=== PATIENT | female | born 1975 | race American Indian/Alaskan Native ===

== ENCOUNTER 2016-10-08 07:31 | Inpatient (IN) | payer MEDICAID, OTHER ==
[2016-10-08 08:15] LABS: Basophils % (Auto) 0.3 % (0.0-1.8); Hematocrit 43.1 % (30.3-42.9); Hemoglobin 14.7 gm/dl (10.1-14.3); Mean Corpuscular HGB Conc 34 % (30-34); Mean Corpuscular Hemoglobin 35 pg (28-32); Mean Corpuscular Volume 102 fl (79-97); Platelet Count 143 K/mm3 (140-440); Red Blood Count 4.22 M/mm3 (3.65-5.03); Red Cell Distribution Width 12.5 % (13.2-15.2); White Blood Count 16.3 K/mm3 (4.5-11.0)
[2016-10-08 08:31] LABS: Alanine Aminotransferase 19 units/L (7-56); Albumin 4.2 g/dL (3.9-5); Albumin/Globulin Ratio 1.3 %; Alkaline Phosphatase 79 units/L (35-129); Anion Gap 21 mmol/L; Bilirubin,Total 1.5 mg/dL (0.1-1.2); Blood Urea Nitrogen 6 mg/dL (7-17); Calcium 8.9 mg/dL (8.4-10.2); Carbon Dioxide 23 mmol/L (22-30); Chloride 96.6 mmol/L (98-107); Glucose 109 mg/dL (65-100); Potassium 4.1 mmol/L (3.6-5.0); Sodium 136 mmol/L (137-145); Total Protein 7.5 g/dL (6.3-8.2)
[2016-10-08 08:40] LABS: Lipase 1222 units/L (13-60)
[2016-10-08 10:03] LABS: Bilirubin,Urine Negative (Negative); Blood,Urine Moderate (Negative); Ketones,Urine Negative (Negative)
[2016-10-08 10:04] LABS: Leukocyte Esterase,Urine Negative (Negative); Nitrite,Urine Negative (Negative); Urobilinogen,Urine < 2.0 mg/dL (<2.0)
[2016-10-08 10:35] LABS: Bacteria,Urine 1+ /HPF (Negative); Mucus,Urine 1+ /HPF
[2016-10-08] MEDS ORDERED: MORPHINE IV ONE (11:37)
[2016-10-08] MEDS ORDERED: ZOFRAN IV ONE (11:46)
--- NOTE | 2016-10-08 11:52 | Emergency Department Report ---
ED Abdominal Pain HPI - General Chief Complaint: Abdominal Pain Stated Complaint: ABD PAIN/VOMITING Time Seen by Provider: 10/08/16 11:31 Source: patient Mode of arrival: Ambulatory Limitations: No Limitations - History of Present Illness Initial Comments: 41-year-old female comes in for complaint of upper abdominal pain 1 week patient reports that she seen her primary medical doctor for the same issues on Sunday and was told she has a virus in her stomach is irritated. Patient reports that her primary medical doctor placed her on Prilosec which she feels did not help at all. Patient complains of nausea vomiting diarrhea. She denies any vaginal bleeding discharge no dysuria no urinary frequency no urgency. Patient describes the pain as burning. She does disclose that she is in drinker of alcohol daily. She reports she's had a past medical history of pancreatitis. His accompanying by in the exam room. - Related Data Previous Rx's Medication Instructions Recorded Last Taken Type Hydrocodone Bit/Acetaminophen 1 each PO Q6H PRN #12 tablet 08/20/13 Unknown Rx [Vicodin 5/500] Ibuprofen [Motrin] 600 mg PO Q6H PRN #20 tablet 08/20/13 Unknown Rx Methocarbamol [Robaxin] 750 mg PO BID #14 tab 08/20/13 Unknown Rx Docusate Sodium [Colace] 100 mg PO BID PRN #60 capsule 05/25/14 Unknown Rx Ibuprofen [Motrin 800 MG tab] 800 mg PO Q8H PRN #30 tablet 05/25/14 Unknown Rx oxyCODONE /ACETAMINOPHEN [Percocet 1 tab PO Q6HR PRN #30 tablet 05/25/14 Unknown Rx 5/325] Enoxaparin [Lovenox] 40 mg SQ QDAY #30 syringe 05/28/14 Unknown Rx Allergies Allergy/AdvReac Type Severity Reaction Status Date / Time Sulfa (Sulfonamide Allergy Hives Verified 08/20/13 16:18 Antibiotics) ED Review of Systems ROS: Stated complaint: ABD PAIN/VOMITING Other details as noted in HPI Constitutional: denies: chills, fever Gastrointestinal: abdominal pain (upper quadrant), nausea, vomiting, diarrhea Genitourinary: denies: urgency, dysuria, frequency, hematuria, discharge ED Past Medical Hx - Past Medical History Hx Hypertension: No Hx Congestive Heart Failure: No Hx Diabetes: No Hx Deep Vein Thrombosis: No Hx Liver Disease: No Hx Renal Disease: No Hx Sickle Cell Disease: No Hx Seizures: No Hx Asthma: Yes Hx COPD: No Hx HIV: No Additional medical history: pancreatitis - Surgical History Past Surgical History?: Yes Additional Surgical History: - Social History Smoking Status: Current Every Day Smoker Substance Use Type: Alcohol - Medications Home Medications: Home Medications Medication Instructions Recorded Confirmed Last Taken Type Hydrocodone Bit/Acetaminophen 1 each PO Q6H PRN #12 tablet 08/20/13 05/25/14 Unknown Rx [Vicodin 5/500] Ibuprofen [Motrin] 600 mg PO Q6H PRN #20 tablet 08/20/13 05/25/14 Unknown Rx Methocarbamol [Robaxin] 750 mg PO BID #14 tab 08/20/13 05/25/14 Unknown Rx Docusate Sodium [Colace] 100 mg PO BID PRN #60 capsule 05/25/14 Unknown Rx Ibuprofen [Motrin 800 MG tab] 800 mg PO Q8H PRN #30 tablet 05/25/14 Unknown Rx oxyCODONE /ACETAMINOPHEN [Percocet 1 tab PO Q6HR PRN #30 tablet 05/25/14 Unknown Rx 5/325] Enoxaparin [Lovenox] 40 mg SQ QDAY #30 syringe 05/28/14 Unknown Rx ED Physical Exam - General Limitations: No Limitations General appearance: alert, in no apparent distress - Head Head exam: Present: atraumatic, normocephalic - Eye Eye exam: Present: normal appearance - ENT ENT exam: Present: normal exam, mucous membranes moist - Neck Neck exam: Present: normal inspection - Respiratory Respiratory exam: Present: normal lung sounds bilaterally - Cardiovascular Cardiovascular Exam: Present: regular rate, normal rhythm - GI/Abdominal GI/Abdominal exam: Present: soft, distended ( epigastric), tenderness (right upper and left upper quadrants), normal bowel sounds. Absent: guarding, rebound - Back Exam Back exam: Present: normal inspection. Absent: CVA tenderness (R), CVA tenderness (L) - Neurological Exam Neurological exam: Present: alert, oriented X3 - Psychiatric Psychiatric exam: Present: normal affect - Skin Skin exam: Present: warm, dry, intact, normal color. Absent: rash ED Course Vital Signs 10/08/16 07:45 Temperature 98.8 F Pulse Rate 117 H Respiratory 18 Rate Blood Pressure 147/100 O2 Sat by Pulse 97 Oximetry ED Medical Decision Making - Lab Data Result diagrams: 10/08/16 08:00 10/08/16 08:00 - Radiology Data Radiology results: image reviewed FINDINGS: Abdomen: The liver is enlarged and diffusely hypodense. The right lobe measures 20.5 cm in length. No liver mass. The gallbladder and bile ducts are normal.The pancreatic body and tail are enlarged and there is moderate peripancreatic fluid. Peripancreatic fat stranding and stranding of the mesenteric fat. Moderate ascites with perihepatic fluid and mild fluid in the paracolic gutters. Normal stomach, duodenum and spleen. The kidneys are normal except for a 2.5 cm right renal cyst. The renal collecting systems and ureters are nondilated. Normal aorta and inferior vena cava. The small bowel is normal.Normal ascending, transverse and descending colon. Normal appendix. No pneumoperitoneum. Pelvis: Normal urinary bladder.Normal uterus and ovaries. Status post bilateral tubal ligation. Moderate free pelvic fluid. Normal rectum and sigmoid colon. Bone windows demonstrate no bone lesion. IMPRESSION:1. Acute pancreatitis with no apparent complication. 2. Hepatic steatosis and hepatomegaly. 3. No evidence of cholelithiasis. However, ultrasound is more sensitive for detecting small calculi which may not be visible on CT. 4. Normal pelvis. - Medical Decision Making Since evaluated by this provider in fast track. Discussed with Dr. Love my findings on exam and labs. Discussed lipase is 1222 WBCs are 16.3 total bilirubin is 1.5. He agrees patient needs to be scan with a CAT scan of abdomen with contrast IV to be placed for normal saline bolus 4 mg of morphine 4 mg of Zofran. We will discuss admissions once we had the results of CAT scan. Patient has been placed on nothing by mouth. Critical care attestation.: If time is entered above; I have spent that time in minutes in the direct care of this critically ill patient, excluding procedure time. ED Disposition Condition: Stable Instructions: Abdominal Pain (ED)
--- NOTE | 2016-10-08 13:15 | Cat Scan Report ---
CT ABDOMEN AND PELVIS WITH CONTRAST: 10/08/16 07:31:00 CLINICAL: Abdominal pain with elevated lipase and white blood cell count.. COMPARISON: None. TECHNIQUE: Volumetric acquisition and 1.25 millimeter scan reconstructions after the uneventful intravenous injection of 100 cc Omnipaque 300. Consent was obtained prior to the administration of contrast. Oral contrast was also given. FINDINGS: Abdomen: The liver is enlarged and diffusely hypodense. The right lobe measures 20.5 cm in length. No liver mass. The gallbladder and bile ducts are normal.The pancreatic body and tail are enlarged and there is moderate peripancreatic fluid. Peripancreatic fat stranding and stranding of the mesenteric fat. Moderate ascites with perihepatic fluid and mild fluid in the paracolic gutters. Normal stomach, duodenum and spleen. The kidneys are normal except for a 2.5 cm right renal cyst. The renal collecting systems and ureters are nondilated. Normal aorta and inferior vena cava. The small bowel is normal.Normal ascending, transverse and descending colon. Normal appendix. No pneumoperitoneum. Pelvis: Normal urinary bladder.Normal uterus and ovaries. Status post bilateral tubal ligation. Moderate free pelvic fluid. Normal rectum and sigmoid colon. Bone windows demonstrate no bone lesion. IMPRESSION:1. Acute pancreatitis with no apparent complication. 2. Hepatic steatosis and hepatomegaly. 3. No evidence of cholelithiasis. However, ultrasound is more sensitive for detecting small calculi which may not be visible on CT. 4. Normal pelvis.
[2016-10-08] MEDS ORDERED: DILAUDID IV ONE (13:49)
--- NOTE | 2016-10-08 16:30 | Event Note ---
Date: 10/08/16 See H/p in reports Acute pancreatitis Chronic pain Etoh dependence
[2016-10-08] MEDS ORDERED: TYLENOL PO PRN (16:41)
[2016-10-08] MEDS ORDERED: MILK OF MAGNESIA PO PRN (16:41)
[2016-10-08] MEDS ORDERED: DULCOLAX PR PRN (16:41)
[2016-10-08] MEDS ORDERED: ZOFRAN IV PRN ×2 (16:41→16:52)
[2016-10-08] MEDS: LOVENOX SUB-Q SCH (17:09)
[2016-10-08] MEDS ORDERED: PEPCID IV SCH (22:00)
[2016-10-08] MEDS: DILAUDID IV PRN (22:13)
[2016-10-08] MEDS: D5NS 1,000 ML IV SCH (22:13)
[2016-10-08] MEDS ORDERED: HALDOL IM PRN (23:09)
[2016-10-08] MEDS ORDERED: ATIVAN IV PRN ×2 (23:09)
[2016-10-08] MEDS ORDERED: HABITROL TD ONE (23:15)
--- NOTE | 2016-10-09 00:02 | Admit Criteria Form ---
Admission Criteria Documentation: ABDOMINAL PAIN Clinical Indications for Admission to Inpatient Care (Place 'X' for any and all applicable criteria): Admission is indicated for ANY ONE of the following(1)(2)(3)(4)(5): [ ]I. Inpatient admission required rather than observation care (Also use Abdominal Pain: Observation Care, as appropriate) because of ANY ONE of the following: [ ]a) Severe pain requiring acute inpatient management [ ]b) Identification of etiology/finding that requires inpatient care (eg, aortic dissection, free air) [ ]c) Absent bowel sounds with complete ileus(6) [ ]d) Suspected toxic megacolon [ ]e) Severe electrolyte abnormalities requiring inpatient care [ ]f) High fever or infection requiring inpatient admission as indicated by ANY ONE of following(7)(8): [ ] i) Appropriate outpatient or observational care antimicrobial treatment unavailable, not effective, or not feasible [ ] ii) Documented bacteremia [ ] iii) Temperature > 104.9 degrees F (oral) [ ] iv) T >103.1 F (oral) or < 96.8 F(rectal) that does not respond to all emergency treatment measures [ ]g) Signs of intestinal obstruction [B] [ ]h) Hemodynamic instability [ ]i) IV fluid to replace significant ongoing losses (greater than 3 L/m2 per day) (12)(13) [ ]j) Percutaneous or open drainage (eg, abscess, biliary tract ) procedures [ ]k) Parenteral nutrition regimen that must be implemented on inpatient basis [ ]l) Other condition,treatment or monitoring requiring inpatient admission. [ ]II. Peritoneal signs present [ ]III. Surgery needed that cannot be performed on an ambulatory basis. [X ]IV. Evaluation requires patient to not eat or drink for extended period ( eg, more than 24 hours). [ ]V. Contraindications and/or Inappropriate clinical situations for Observational Care in patients with abdominal pain, when ANY ONE of the following is required: [ ]a) Thorough evaluation is required to prevent catastrophic events due to delays in diagnosing (e.g.Mesenteric ischemia) 1,3 [ ]b) Patient with severe pathology or with chronic symptoms unlikely to improve in the ED stay (3) [ ]. General contraindications and/or Inappropriate clinical situations for Observational Care in patients with abdominal pain, when ANY ONE of the following is required: [ ]a) Prediction of prolongation of LOS based on ANY ONE of the following may be considered as a contraindication for observational care 2, 3, 4, 5, 6, 7, 8, 9, 10, 11 [ ]i) Age > 65 yrs. [ ]ii) Patient arriving by ambulance [ ]iii) Patient with high acuity [ ]iv) Patient requiring vital sign monitoring [ ]v) Patient on IV medication [ ]b) Systolic blood pressures 180mmHg 3,12 [ ]c) Patient with altered mental status including delirium and other alteration of consciousness, (3) [ ]d) Patient whose discharge disposition will be to a senior living home or rehabilitation home should not be managed in Emergency Department Observation Unit. CMS rule requires 3 days hospital stay before such placement.3,13 [ ]e) Patient with failure to thrive due to broad array of etiologies 3,16,17 [ ]f) Inability to ambulate 3,14 Extended stay beyond goal length of stay may be needed for(2)(3): [ ]a) Persistent abdominal pain with suspected intra-abdominal process [ ]b) Diagnosed condition requiring continued stay (e.g., pancreatitis, complicated diverticulitis) [ ]c) Surgery (e.g., colectomy) The original [facility] content created by [employer] has been revised. The portions of the content which have been revised are identified through the use of italic text or in bold, and [facility] has neither reviewed nor approved the modified material.All other unmodified content is copyright [facility]. Please see references footnoted in the original [facility] edition 2016 Admission Criteria Met: Yes
--- NOTE | 2016-10-09 00:07 | History and Physical Report ---
CHIEF COMPLAINT: Severe epigastric pain of one week duration. HISTORY OF PRESENT ILLNESS: A 41-year-old -[place] female comes in for severe epigastric pain of one week duration. The patient apparently was given Prilosec with no relief. Complains of nausea and vomiting. Vomiting 3-4 times. Pain is about 10 on a scale of 1-10. It is a severe sharp pain. No difficulty urinating. No pain on urination. She takes alcohol on a regular basis. PAST MEDICAL HISTORY: Significant for chronic pain, asthma, and a history of pancreatitis in the past. CURRENT MEDICATIONS: Vicodin 5/500 and Robaxin 750 mg twice a day. Oxycodone q. 6 p.r.n. PAST SURGICAL HISTORY: Significant for . SOCIAL HISTORY: Alcohol on a regular basis. However, the patient could not quantify it properly. Current everyday smoker, about a pack a day. FAMILY HISTORY: Significant for hypertension. REVIEW OF SYSTEMS: Significant for severe epigastric pain associated with vomiting. Pain is 10/10. Otherwise, review of systems is essentially negative. Vomiting occasionally. PHYSICAL EXAMINATION: GENERAL: Middle-aged female, cooperative during examination. VITAL SIGNS: Temperature 98.8, pulse is 117, respirations are 18, blood pressure 147/100, sats are 97%. HEENT: Unremarkable. Pupils equal and reactive. NECK: Supple, no lymphadenopathy, no thyromegaly. LUNGS: Clear to auscultation and percussion. Good air entry. CARDIOVASCULAR: S1, S2 heard. No gallop, no murmur, no rub. Apical impulse in left fifth intercostal space and midclavicular line. ABDOMEN: Soft. Epigastric tenderness present. No guarding, no rigidity. Hernial orifices are normal. EXTREMITIES: Good pedal pulses. CENTRAL NERVOUS SYSTEM: Alert and oriented x 4, nonfocal exam. SKIN: Normal. LABORATORY DATA: Significant for white count of 16,300, H and H is 14.7 and 43.1, platelet count is 143,000. Sodium is 136, potassium is 4.1, chloride is 96.6, BUN and creatinine is 6 and 0.6, glucose is 109. A1c is 5.1. Lipase is 1222. Amylase was not done. Urine was negative. CT of the abdomen shows acute pancreatitis with no apparent complication. Peripancreatic fat stranding, stranding of mesenteric fats, and peripancreatic fluid present. ASSESSMENT AND PLAN: 1. Acute pancreatitis secondary to alcohol. The patient will be kept n.p.o., IV fluids and Dilaudid 2 mg IV push q. 3., and Zofran 4-8 mg q. 3 p.r.n. 2. ETOH dependence. The patient will be put on CIWA protocol to prevent DVTs. 3. Chronic pain. The patient is already on pain medication, does not take any pain medication. 4. Deep venous thrombosis prophylaxis, Lovenox 40 mg subcutaneous daily. [facility]# [id number] MARI AC/ASHIA
[2016-10-09] MEDS: PROTONIX IV SCH ×2 (00:08→09:16)
[2016-10-09] MEDS: DILAUDID IV PRN ×6 (02:43→21:53)
[2016-10-09] MEDS: D5NS 1,000 ML IV SCH ×2 (08:32→23:27)
[2016-10-09] MEDS: LOVENOX SUB-Q SCH (09:16)
[2016-10-09 09:19] LABS: Basophils % (Auto) 0.2 % (0.0-1.8); Eosinophils % (Auto) 0.4 % (0.0-4.3); Hematocrit 37.6 % (30.3-42.9); Hemoglobin 12.5 gm/dl (10.1-14.3); Mean Corpuscular HGB Conc 33 % (30-34); Mean Corpuscular Hemoglobin 34 pg (28-32); Mean Corpuscular Volume 102 fl (79-97); Platelet Count 114 K/mm3 (140-440); Red Blood Count 3.68 M/mm3 (3.65-5.03); Red Cell Distribution Width 12.6 % (13.2-15.2); White Blood Count 11.5 K/mm3 (4.5-11.0)
[2016-10-09 09:31] LABS: Alanine Aminotransferase 12 units/L (7-56); Albumin 3.2 g/dL (3.9-5); Alkaline Phosphatase 61 units/L (35-129); Amylase 204 units/L (27-131); Anion Gap 17 mmol/L; Bilirubin,Total 1.2 mg/dL (0.1-1.2); Blood Urea Nitrogen 6 mg/dL (7-17); Calcium 8.2 mg/dL (8.4-10.2); Carbon Dioxide 23 mmol/L (22-30); Chloride 101.2 mmol/L (98-107); Glucose 110 mg/dL (65-100); Potassium 3.4 mmol/L (3.6-5.0); Sodium 138 mmol/L (137-145); Total Protein 6.3 g/dL (6.3-8.2)
--- NOTE | 2016-10-09 10:06 | Progress Note ---
Assessment and Plan Assessment and plan: --Acute pancreatitis; Probably alcohol related, pancreatic enzymes trending down Ice chips and sips of water, supportive care Get abdominal ultrasound --Chronic pain syndrome; Continue current pain medications as needed --Hypokalemia; replenish per protocol and monitor levels --History of chronic alcohol use; Counseling done patient strongly advised to quit alcohol use verbalized understanding --Closely monitor for alcohol withdrawal symptoms; initiate CIWA protocol as needed --DVT prophylaxis with Lovenox Closely monitor the patient possible discharge in 1-2 days if stable History Interval history: Patient seen and evaluated this morning medical records reviewed Patient feels thirsty requests for water Admitted with acute pancreatitis, symptoms slight improvement, pancreatic enzymes trending down Alert awake oriented 3 not in acute distress Vital signs reviewed, stable Hospitalist Physical - Constitutional Vitals: Temp Pulse Resp BP Pulse Ox 98.5 F 88 16 98/56 97 10/09/16 08:00 10/09/16 08:00 10/09/16 08:32 10/09/16 08:00 10/09/16 08:00 General appearance: Present: no acute distress, well-nourished, obese - EENT Eyes: Present: PERRL, EOM intact - Neck Neck: Present: supple, normal ROM - Respiratory Respiratory effort: normal Respiratory: negative: rales, rhonchi, wheezing - Cardiovascular Rhythm: regular Heart Sounds: Present: S1 & S2 - Extremities Extremities: no ischemia, pulses intact, pulses symmetrical Peripheral Pulses: within normal limits - Abdominal General gastrointestinal: soft, non-tender, non-distended, normal bowel sounds - Integumentary Integumentary: Present: clear, warm - Psychiatric Psychiatric: appropriate mood/affect, cooperative - Neurologic Neurologic: CNII-XII intact, moves all extremities Results - Labs CBC & Chem 7: 10/09/16 08:41 10/09/16 08:41 Labs: Laboratory Last Values WBC 11.5 K/mm3 (4.5-11.0) H 10/09/16 08:41 RBC 3.68 M/mm3 (3.65-5.03) 10/09/16 08:41 Hgb 12.5 gm/dl (10.1-14.3) 10/09/16 08:41 Hct 37.6 % (30.3-42.9) 10/09/16 08:41 MCV 102 fl (79-97) H 10/09/16 08:41 MCH 34 pg (28-32) H 10/09/16 08:41 MCHC 33 % (30-34) 10/09/16 08:41 RDW 12.6 % (13.2-15.2) L 10/09/16 08:41 Plt Count 114 K/mm3 (140-440) L 10/09/16 08:41 Lymph % (Auto) 11.9 % (13.4-35.0) L 10/09/16 08:41 [place] % (Auto) 5.6 % (0.0-7.3) 10/09/16 08:41 Eos % (Auto) 0.4 % (0.0-4.3) 10/09/16 08:41 Baso % (Auto) 0.2 % (0.0-1.8) 10/09/16 08:41 Lymph # 1.4 K/mm3 (1.2-5.4) 10/09/16 08:41 [place] # 0.6 K/mm3 (0.0-0.8) 10/09/16 08:41 Eos # 0.0 K/mm3 (0.0-0.4) 10/09/16 08:41 Baso # 0.0 K/mm3 (0.0-0.1) 10/09/16 08:41 Seg Neutrophils % 81.9 % (40.0-70.0) H 10/09/16 08:41 Seg Neutrophils # 9.4 K/mm3 (1.8-7.7) H 10/09/16 08:41 Sodium 138 mmol/L (137-145) 10/09/16 08:41 Potassium 3.4 mmol/L (3.6-5.0) L 10/09/16 08:41 Chloride 101.2 mmol/L (98-107) 10/09/16 08:41 Carbon Dioxide 23 mmol/L (22-30) 10/09/16 08:41 Anion Gap 17 mmol/L 10/09/16 08:41 BUN 6 mg/dL (7-17) L 10/09/16 08:41 Creatinine 0.6 mg/dL (0.7-1.2) L 10/09/16 08:41 Estimated GFR > 60 ml/min 10/09/16 08:41 BUN/Creatinine Ratio 10.00 % 10/09/16 08:41 Glucose 110 mg/dL (65-100) H 10/09/16 08:41 Hemoglobin A1c 5.1 % (4-6) 10/08/16 08:00 Calcium 8.2 mg/dL (8.4-10.2) L 10/09/16 08:41 Magnesium 1.7 mg/dL (1.7-2.3) 10/08/16 23:56 Total Bilirubin 1.2 mg/dL (0.1-1.2) 10/09/16 08:41 AST 18 units/L (5-40) 10/09/16 08:41 ALT 12 units/L (7-56) 10/09/16 08:41 Alkaline Phosphatase 61 units/L (35-129) 10/09/16 08:41 Total Protein 6.3 g/dL (6.3-8.2) 10/09/16 08:41 Albumin 3.2 g/dL (3.9-5) L 10/09/16 08:41 Albumin/Globulin Ratio 1.0 % 10/09/16 08:41 Amylase 204 units/L (27-131) H 10/09/16 08:41 Lipase 636 units/L (13-60) H 10/09/16 08:41 Urine Color [place] (Yellow) 10/08/16 09:36 Urine Turbidity Cloudy (Clear) 10/08/16 09:36 Urine pH 6.0 (5.0-7.0) 10/08/16 09:36 Ur Specific [place] 1.030 (1.003-1.030) 10/08/16 09:36 Urine Protein 30 mg/dl mg/dL (Negative) 10/08/16 09:36 Urine Glucose (UA) Negative mg/dL (Negative) 10/08/16 09:36 Urine Ketones Negative mg/dL (Negative) 10/08/16 09:36 Urine Blood Moderate (Negative) 10/08/16 09:36 Urine Nitrite Negative (Negative) 10/08/16 09:36 Ur Reducing Substances Not Reportable 10/08/16 09:36 Urine Bilirubin Negative (Negative) 10/08/16 09:36 Urine Ictotest Not Reportable 10/08/16 09:36 Urine Urobilinogen < 2.0 mg/dL (<2.0) 10/08/16 09:36 Ur Leukocyte Esterase Negative (Negative) 10/08/16 09:36 Urine WBC (Auto) 2.0 /HPF (0.0-6.0) 10/08/16 09:36 Urine RBC (Auto) 8.0 /HPF (0.0-6.0) 10/08/16 09:36 U Epithel Cells (Auto) 11.0 /HPF (0-13.0) 10/08/16 09:36 Urine Bacteria (Auto) 1+ /HPF (Negative) 10/08/16 09:36 Urine Mucus 1+ /HPF 10/08/16 09:36 Urine HCG, Qual Negative (Negative) 10/08/16 09:36
[2016-10-09] MEDS: KCL 10MEQ/100ML 100 ML IV SCH ×2 (12:23→13:53)
[2016-10-09] MEDS: PEPCID IV SCH ×2 (20:42→23:28)
[2016-10-09] MEDS: ATIVAN IV PRN (23:32)
[2016-10-10 05:53] LABS: Amylase 85 units/L (27-131); Blood Urea Nitrogen 3 mg/dL (7-17); Calcium 8.4 mg/dL (8.4-10.2); Carbon Dioxide 27 mmol/L (22-30); Chloride 97.5 mmol/L (98-107); Glucose 96 mg/dL (65-100); Lipase 189 units/L (13-60); Magnesium 1.9 mg/dL (1.7-2.3); Sodium 136 mmol/L (137-145)
[2016-10-10 05:57] LABS: Anion Gap 14 mmol/L
[2016-10-10] MEDS ORDERED: K-DUR PO ONE (06:05)
[2016-10-10] MEDS: DILAUDID IV PRN ×4 (06:57→21:13)
[2016-10-10] MEDS: LOVENOX SUB-Q SCH (11:38)
[2016-10-10] MEDS: PEPCID IV SCH ×2 (11:39→21:13)
[2016-10-10] MEDS ORDERED: FLUARIX QUAD 2016-2017(36 MOS+) IM ONE (12:00)
[2016-10-10] MEDS: HABITROL TD SCH (12:57)
--- NOTE | 2016-10-10 16:38 | Progress Note ---
Assessment and Plan Assessment and plan: --Acute pancreatitis; And symptoms significantly improved, clear liquid diet advance as tolerated pancreatic enzymes trending down Ice chips and sips of water, supportive care Get abdominal ultrasound --Chronic pain syndrome; Continue current pain medications as needed --Hypokalemia; replenish per protocol and monitor levels --History of chronic alcohol use; Counseling done patient strongly advised to quit alcohol use verbalized understanding --No evidence of alcohol withdrawal symptoms, CIWA protocol as needed --DVT prophylaxis with Lovenox Closely monitor the patient possible discharge tomorrow if abdominal ultrasound is negative and if patient is stable History Interval history: patient seen and evaluated medical records reviewed Feels slightly better tolerating clear liquids Awaiting abdominal ultrasound No known to complaints Alert awake oriented 3 not in acute distress, Hospitalist Physical - Constitutional Vitals: Temp Pulse Resp BP Pulse Ox 98 F 100 H 20 122/70 97 10/10/16 16:00 10/10/16 16:00 10/10/16 16:00 10/10/16 16:00 10/10/16 08:00 General appearance: Present: no acute distress, well-nourished, obese - EENT Eyes: Present: PERRL, EOM intact - Neck Neck: Present: supple, normal ROM - Respiratory Respiratory effort: normal Respiratory: negative: diminished, rales, rhonchi - Cardiovascular Rhythm: regular Heart Sounds: Present: S1 & S2 - Extremities Extremities: no ischemia, pulses intact, pulses symmetrical Peripheral Pulses: within normal limits - Abdominal General gastrointestinal: soft, non-tender, non-distended, normal bowel sounds - Integumentary Integumentary: Present: clear, warm - Psychiatric Psychiatric: appropriate mood/affect, cooperative - Neurologic Neurologic: CNII-XII intact, moves all extremities Results - Labs CBC & Chem 7: 10/09/16 08:41 10/10/16 05:14 Labs: Laboratory Last Values WBC 11.5 K/mm3 (4.5-11.0) H 10/09/16 08:41 RBC 3.68 M/mm3 (3.65-5.03) 10/09/16 08:41 Hgb 12.5 gm/dl (10.1-14.3) 10/09/16 08:41 Hct 37.6 % (30.3-42.9) 10/09/16 08:41 MCV 102 fl (79-97) H 10/09/16 08:41 MCH 34 pg (28-32) H 10/09/16 08:41 MCHC 33 % (30-34) 10/09/16 08:41 RDW 12.6 % (13.2-15.2) L 10/09/16 08:41 Plt Count 114 K/mm3 (140-440) L 10/09/16 08:41 Lymph % (Auto) 11.9 % (13.4-35.0) L 10/09/16 08:41 [place] % (Auto) 5.6 % (0.0-7.3) 10/09/16 08:41 Eos % (Auto) 0.4 % (0.0-4.3) 10/09/16 08:41 Baso % (Auto) 0.2 % (0.0-1.8) 10/09/16 08:41 Lymph # 1.4 K/mm3 (1.2-5.4) 10/09/16 08:41 [place] # 0.6 K/mm3 (0.0-0.8) 10/09/16 08:41 Eos # 0.0 K/mm3 (0.0-0.4) 10/09/16 08:41 Baso # 0.0 K/mm3 (0.0-0.1) 10/09/16 08:41 Seg Neutrophils % 81.9 % (40.0-70.0) H 10/09/16 08:41 Seg Neutrophils # 9.4 K/mm3 (1.8-7.7) H 10/09/16 08:41 Sodium 136 mmol/L (137-145) L 10/10/16 05:14 Potassium 3.0 mmol/L (3.6-5.0) L 10/10/16 05:14 Chloride 97.5 mmol/L (98-107) L 10/10/16 05:14 Carbon Dioxide 27 mmol/L (22-30) 10/10/16 05:14 Anion Gap 14 mmol/L 10/10/16 05:14 BUN 3 mg/dL (7-17) L 10/10/16 05:14 Creatinine 0.5 mg/dL (0.7-1.2) L 10/10/16 05:14 Estimated GFR > 60 ml/min 10/10/16 05:14 BUN/Creatinine Ratio 6.00 % 10/10/16 05:14 Glucose 96 mg/dL (65-100) 10/10/16 05:14 Hemoglobin A1c 5.1 % (4-6) 10/08/16 08:00 Calcium 8.4 mg/dL (8.4-10.2) 10/10/16 05:14 Magnesium 1.9 mg/dL (1.7-2.3) 10/10/16 05:14 Total Bilirubin 1.2 mg/dL (0.1-1.2) 10/09/16 08:41 AST 18 units/L (5-40) 10/09/16 08:41 ALT 12 units/L (7-56) 10/09/16 08:41 Alkaline Phosphatase 61 units/L (35-129) 10/09/16 08:41 Total Protein 6.3 g/dL (6.3-8.2) 10/09/16 08:41 Albumin 3.2 g/dL (3.9-5) L 10/09/16 08:41 Albumin/Globulin Ratio 1.0 % 10/09/16 08:41 Amylase 85 units/L (27-131) 10/10/16 05:14 Lipase 189 units/L (13-60) H 10/10/16 05:14 Urine Color [place] (Yellow) 10/08/16 09:36 Urine Turbidity Cloudy (Clear) 10/08/16 09:36 Urine pH 6.0 (5.0-7.0) 10/08/16 09:36 Ur Specific [place] 1.030 (1.003-1.030) 10/08/16 09:36 Urine Protein 30 mg/dl mg/dL (Negative) 10/08/16 09:36 Urine Glucose (UA) Negative mg/dL (Negative) 10/08/16 09:36 Urine Ketones Negative mg/dL (Negative) 10/08/16 09:36 Urine Blood Moderate (Negative) 10/08/16 09:36 Urine Nitrite Negative (Negative) 10/08/16 09:36 Ur Reducing Substances Not Reportable 10/08/16 09:36 Urine Bilirubin Negative (Negative) 10/08/16 09:36 Urine Ictotest Not Reportable 10/08/16 09:36 Urine Urobilinogen < 2.0 mg/dL (<2.0) 10/08/16 09:36 Ur Leukocyte Esterase Negative (Negative) 10/08/16 09:36 Urine WBC (Auto) 2.0 /HPF (0.0-6.0) 10/08/16 09:36 Urine RBC (Auto) 8.0 /HPF (0.0-6.0) 10/08/16 09:36 U Epithel Cells (Auto) 11.0 /HPF (0-13.0) 10/08/16 09:36 Urine Bacteria (Auto) 1+ /HPF (Negative) 10/08/16 09:36 Urine Mucus 1+ /HPF 10/08/16 09:36 Urine HCG, Qual Negative (Negative) 10/08/16 09:36
[2016-10-10] MEDS: D5NS 1,000 ML IV SCH (16:54)
[2016-10-10] MEDS: ATIVAN IV PRN (23:54)
[2016-10-11] MEDS: D5NS 1,000 ML IV SCH (02:58)
[2016-10-11] MEDS: DILAUDID IV PRN ×2 (02:58→10:48)
[2016-10-11 08:02] LABS: Anion Gap 15 mmol/L; Carbon Dioxide 26 mmol/L (22-30); Chloride 101.7 mmol/L (98-107); Glucose 121 mg/dL (65-100); Lipase 153 units/L (13-60); Sodium 140 mmol/L (137-145)
[2016-10-11 08:06] LABS: Blood Urea Nitrogen < 1 mg/dL (7-17)
[2016-10-11] MEDS: HABITROL TD SCH (10:49)
[2016-10-11] MEDS: PEPCID IV SCH (10:49)
[2016-10-11] MEDS: LOVENOX SUB-Q SCH (10:49)
--- NOTE | 2016-10-11 10:55 | Discharge Summary ---
Providers - Providers Date of Admission: 10/08/16 16:41 Date of discharge: 10/11/16 Attending physician: NATHAN SILVA Primary care physician: ELIZABETH HOWARD Hospitalization Condition: Stable Disposition: DISCHARGED TO HOME OR SELFCARE Time spent for discharge: 32 min Core Measure Documentation - Palliative Care Palliative Care/ Comfort Measures: Not Applicable - Core Measures Any of the following diagnoses?: none Exam - Constitutional Vitals: Temp Pulse Resp BP Pulse Ox 98.0 F 86 18 117/71 96 10/11/16 07:55 10/11/16 07:55 10/11/16 07:55 10/11/16 07:55 10/11/16 07:55 General appearance: Present: no acute distress, well-nourished - EENT Eyes: Present: PERRL, EOM intact - Neck Neck: Present: supple, normal ROM - Respiratory Respiratory effort: normal Respiratory: bilateral: diminished, negative: rales, rhonchi, wheezing - Cardiovascular Rhythm: regular Heart Sounds: Present: S1 & S2 - Extremities Extremities: no ischemia, pulses intact, pulses symmetrical Peripheral Pulses: within normal limits - Abdominal General gastrointestinal: Present: soft, non-tender, non-distended, normal bowel sounds - Integumentary Integumentary: Present: clear, warm - Musculoskeletal Musculoskeletal: strength equal bilaterally - Psychiatric Psychiatric: appropriate mood/affect, cooperative - Neurologic Neurologic: CNII-XII intact, moves all extremities Plan Activity: no restrictions Diet: advance as tolerated, other (soft diet) Additional Instructions: if you have recurrent abdominal pain you may need outpatient GI evaluation Follow up with: ELIZABETH HOWARD MD [Primary Care Provider] - 3-5 Days Prescriptions: Famotidine/Ca Carb/Mag Hydrox [Pepcid Complete Tablet Chew] 1 each PO BID #30 tab.chew Nicotine [Habitrol] 14 mg TD QDAY #30 patch oxyCODONE /ACETAMINOPHEN [Percocet 5/325] 1 tab PO Q12H PRN #10 tablet PRN Reason: Pain
--- NOTE | 2016-10-11 12:47 | Ultrasound Report ---
ULTRASOUND ABDOMEN: INDICATION: Acute pancreatitis. COMPARISON: 09/26/2010 ultrasound and 10/08/2016 CT. FINDINGS: Abdominal sonography demonstrates normal hepatic contours without focal suspicious lesions or biliary dilatation. Liver though appears slightly coarse diffusely and prominent with the right hepatic lobe enlarged to approximately 20 cm in midclavicular length. No gallstones, pericholecystic fluid or positive sonographic Goldsmith's sign. Gallbladder though distended to approximately 10.7 cm in length. Gallbladder wall thickness is 2.4 mm. Common bile duct is 3 mm. Homogenous spleen, 9.8 cm in length. No ascites. Small left pleural effusion though noted. Pancreatic tail partly obscured due to bowel gas, though remainder imaged pancreas appears homogenous in this patient with known pancreatitis. Unremarkable IVC and nonaneurysmal abdominal aorta. No hydronephrosis, though an approximately 2.3 x 1.9 cm right upper renal cortical cyst again noted. Right kidney is 11.7 x 5.3 x 5.7 cm with cortical thickness of 1.2 cm. Left kidney estimated at 10.4 x 5.6 x 6.7 cm with cortical thickness of 1.8 cm. CONCLUSION: 1. Small left pleural effusion suspected new since 10/08/2016 CT in this patient with known pancreatitis. Minimal upper abdominal ascites on CT however not well appreciated sonographically. 2. Various other incidental findings, including hepatomegaly, right renal cyst and slightly distended gallbladder, as described. Thank you for the opportunity to participate in this patient's care.
[2016-10-11 13:36] VITALS: BP 120/75
== END 2016-10-11 16:17 | disposition home or self-care (01) | DRG 440 ==
LOC: ED 07:31 → 3A 16:41
PROVIDERS: ADMIT Internal Medicine; ATTEND Internal Medicine
DX: K85.20 Alcohol induced acute pancreatitis without necrosis or infection (principal); G89.4 Chronic pain syndrome; E87.6 Hypokalemia; F17.200 Nicotine dependence, unspecified, uncomplicated; F10.20 Alcohol dependence, uncomplicated; Z88.2 Allergy status to sulfonamides; Z82.49 Family history of ischemic heart disease and other diseases of the circulatory system
CPT/HCPCS: 36415; 74177; 76700; 80048; 80053; 81001; 81025; 82150; 83036; 83690; 83735; 85025; 90686; 96372; 96374; 96375; C9113; J1170; J1650; J2060; J2270; J2405; J3480; J7042; Q9967